=== PATIENT | male | born 1985 | race Two or more races ===

== ENCOUNTER → 2025-02-13 | Outpatient (CLI) | payer BC ==
[~2025-02-13] MED LIST: ISOVUE-370 76% 100 ML VIAL ONE
== END ==
LOC: M PLAIMG 11:21
PROVIDERS: ATTEND Otolaryngology
DX: Z86.39 Personal history of other endocrine, nutritional and metabolic disease (principal)
CPT/HCPCS: 70491; Q9967

== ENCOUNTER 2025-04-16 07:04 | Day surgery (SDC) | payer BC ==
[~2025-04-16] VITALS: Ht 172.7 cm; Wt 108.4 kg
[~2025-04-16 07:04] MED LIST changes: +DUPI300P SC; -ISOVUE-370 76% 100 ML VIAL ONE
[2025-04-16] MEDS ORDERED: ROCURONIUM BROMIDE 50MG/5ML VIAL As Ordered ONE (07:09)
[2025-04-16] MEDS ORDERED: LIDOCAINE 2% 100 MG/5 ML SDV (FOR ANES.) As Ordered ONE (07:09)
[2025-04-16] MEDS ORDERED: MIDAZOLAM INJ 2 MG/2 ML VIAL As Ordered ONE (07:09)
[2025-04-16] MEDS ORDERED: SCOPOLAMINE 1MG TRANSDERMAL PATCH TOP ONE (09:00)
[2025-04-16] MEDS ORDERED: ACETAMINOPHEN 1000MG/100ML IV BAG As Ordered ONE (09:11)
[2025-04-16] MEDS ORDERED: SUGAMMADEX SODIUM 500 MG/5 ML VIAL As Ordered ONE (09:11)
[2025-04-16] MEDS ORDERED: dexAMETHasone 4 MG/ML 1 ML VIAL As Ordered ONE (09:11)
[2025-04-16] MEDS ORDERED: ONDANSETRON 4MG/2ML VIAL As Ordered ONE (09:11)
[2025-04-16] MEDS: METHYLENE BLUE 0.5% (5 MG/ML) 10 ML AMP As Ordered ONE (09:15)
[2025-04-16] MEDS: LIDOCAINE W/EPINEPHrine 1% 20 ML VIAL As Ordered ONE (09:15)
[2025-04-16] MEDS: OXYMETAZOLINE 0.05% NASAL SPRAY As Ordered ONE (09:21)
[2025-04-16] MEDS ORDERED: ESMOLOL 100 MG/10 ML VIAL As Ordered ONE (09:23)
[2025-04-16] MEDS ORDERED: MORPHINE 4 MG/ML 1 ML VIAL IV PRN (10:15)
[2025-04-16] MEDS ORDERED: ONDANSETRON 4MG/2ML VIAL IV PRN (10:45)
[2025-04-16] MEDS: HYDROMORPHONE HCL 0.5 MG/0.5 ML SYRINGE IV PRN (10:51)
[2025-04-16] MEDS: ONDANSETRON 4MG/2ML VIAL IV PRN (10:54)
[2025-04-16 11:20] VITALS: BP 133/84; TEMP 97; O2SAT 97
== END 2025-04-16 11:42 | disposition home or self-care (01) ==
LOC: M SDC 07:04
PROVIDERS: ATTEND Otolaryngology
DX: J34.2 Deviated nasal septum (principal); J34.3 Hypertrophy of nasal turbinates; J34.89 Other specified disorders of nose and nasal sinuses; Z91.018 Allergy to other foods; J45.909 Unspecified asthma, uncomplicated
CPT/HCPCS: 30140; 30520; J0131; J1100; J1171; J1805; J2250; J2405; J3010; J3490